=== PATIENT | female | born 1980 | race Two or more races ===

== ENCOUNTER 2018-02-14 20:41 | Inpatient (IN) | payer BC, OTHER ==
[2018-02-14 20:58] VITALS: BMI 32.3
[2018-02-14] MEDS ORDERED: Lactated Ringer's 1,000 ML IV SCH ×2 (21:15)
--- NOTE | 2018-02-14 21:37 | OBHP ---
Datetime: 02/14/2018 21:19 IP Adm Impression: Term, intrauterine ; Active labor; Intact Membranes IP Admit Plan: Admit to unit; Initiate labor protocol Admit Comment, IP Provider: This is a private patient of Dr. Susan Joseph 37 y.o. , LMP unsure, revised BOB 02/26/18, EGA 38w 2d c/o Ctx: very noticeable after offic e visit 02/13/18; stronger this morning at 1000 hours, pain scale then 6/10. Pain scale now 8/10. (+) AFM. Melisa LOF. Vaginal spotting 02/13/18 1700 hours (nadege had a cervical exam during vis it 02/13/18); with continual episodes of spotting on and off today. care: Dr. Susan Joseph; noted for 1) AMA; 2) UTI treated beginning 01/2018. P Ob: 2005, , female, 7lb 4oz, [facility] [place] Nadege treated for UTI after delivery. 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 Denies h/o STI, abnormal Pap, myomata or ovarian cysts. PMH: denies PSH: denies NKDA Meds: PNV and Vit C - eack QD Soc Hx: denies tobacco, illicit drug or EtOH use. , 2014; together x 14 years. 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 Fam Hx: Mother alive 63 y.o. - HTN, Dm, mild dyslipidemia. father alive 65 - HTN, dyslipidemia. No known fam h/o cancer. P.E.: as above. WD inNAD; uncomfortable with contractions. Awake, alert, oriented to time, person and place. Pleasant and cooerative. present Assessment: 37 y.o. P1, 38w 2d, oligohydramnios. Patient for admission for delivery. Patient with uterine contractions and some cervical change - per patient, was 1 cm in office 02/13/18 -> latent pha se of labor. Category [address] Joseph, GBS (-). D/W pain relief options. Patient is clinical ly stable. Plan: 1) Admit 2) NPO 3) Continuous EFM 4) IVFs 5) Admission labs. 6) Pain medication, upon request 7) Anticipate vaginal delivery - as per, and discussed with, Dr. Joseph Pelvic Type - PN: Adequate Extremities - PN: Normal Abdomen - PN: Normal Back - PN: Normal Breast - PN: Not Done Lungs - PN: Normal Heart - PN: Normal Thyroid - PN: Normal Neurologic - PN: Normal HEENT - PN: Normal General - PN: Normal Weight - Estimated: 7 1/2 lbs Presentation-Admit: Vertex FHR - Baseline A Provider: 150 Membranes, Provider: Intact Contraction Comments Provider: irregular Comments, ACOG Physical Exam: Abdomen: Gravid. Firm with contractions. Fundal height 37 cm All other systems reviewed and are negative. Gestation - Est Wks by US: 38w 2d EGA AdmitDate IP: 38.2 Vital Signs Provider: Reviewed IP Indication for Induction: Not Applicable IP Chief Complaint: Uterine contractions NICHD Variability Prov Fetus A: Moderate 6-25bpm NICHD Accel Fetus A IP Provider: 15X15 FHR Category Provider Fetus A: Category I NICHD Decel Fetus A IP Provider: None Dilatation, Provider: 2 Effacement, Provider: 50 Station, Provider: -3 Genitourinary Exam: Normal DTRs - PN: Normal
[2018-02-14 21:44] LABS: BASO % 0.3 % (0.0-2.0); EOS # 0.2 K/uL (0.0-0.7); EOS % 2.7 % (0.0-4.0); HEMOGLOBIN 12.4 g/dL (11.0-16.0); LYMPH # 2.5 K/uL (1.0-4.3); LYMPH % 32.2 % (20.0-40.0); MEAN CELL VOLUME 87.1 fL (81.0-99.0); MEAN CORPUSCULAR HEMOGLOBIN 30.2 pg (27.0-31.0); MEAN CORPUSCULAR HGB CONC 34.7 g/dL (33.0-37.0); MONO # 0.5 K/uL (0.0-0.8); MONO % 6.9 % (0.0-10.0); NEUT # 4.5 K/uL (1.8-7.0); NEUT % 57.9 % (50.0-75.0); NRBC % 0.1 % (0.0-2.0); RBC 4.11 Mil/uL (3.80-5.20); RED CELL DISTRIBUTION WIDTH 13.8 % (11.5-14.5); WHITE BLOOD COUNT 7.8 K/uL (4.8-10.8)
[2018-02-14 21:48] LABS: SQUAMOUS EPITHIAL < 1 /hpf (0-5); URINE BACTERIA FEW (<OCC); URINE BILIRUBIN NEGATIVE (NEGATIVE); URINE BLOOD 1+ (NEGATIVE); URINE CLARITY Clear (Clear); URINE COLOR Straw (YELLOW); URINE GLUCOSE (UA) NORMAL (Normal); URINE LEUKOCYTE ESTERASE NEG Leu/uL (Negative); URINE PROTEIN NEGATIVE (NEGATIVE); URINE UROBILINOGEN NORMAL mg/dL (0.2-1.0)
[2018-02-14 21:58] LABS: ALB/GLOB RATIO 0.9 (1.0-2.1); ALBUMIN 3.4 g/dL (3.5-5.0); ALT/SGPT 6 U/L (9-52); AST/SGOT 23 U/L (14-36); BLOOD UREA NITROGEN 7 mg/dL (7-17); CALCIUM 8.7 mg/dl (8.6-10.4); GFR AFRICAN-AMERICAN > 60; GFR NON-AFRICAN AMERICAN > 60
[2018-02-14 22:29] LABS: HEPATITIS B SURFACE AG Negative (NEGATIVE)
[2018-02-14] MEDS ORDERED: Fentanyl/Bupivacaine HCl 250 ML EPI ONE (23:40)
--- NOTE | 2018-02-15 00:15 | OBPN ---
Datetime: 02/15/2018 00:00 IP Progress Impression: Normal progression of labor IP Procedures: Sterile Vag Exam IP Progress Plan: Continue present management Membranes, Provider: Intact Contraction Comments Provider: q 4 minutes FHR - Baseline A Provider: 135 Gestation - Est Wks by US: 38w 3d IP Progress Note Comment: Patient is S/P epidural; no c/o Ctx Cervical exam -a s above Assessment: 37 y.o. P1, 38w 3d, oligohydramnios for delivery. Some cervical change noted - slow. C ategory 1 tracing. As patient is juani every 4 minutes, will continue expectant. If contractio ns space out, then will give one dose cytotec. Clinically stable. Plan: 1) Continue observation 2) cytotec 25 micrograms p.o. x 1 dose 3) Anticipate vagnial delivery - as per Dr. Jkae INGRAM Accel Fetus A IP Provider: 15X15 FHR Category Provider Fetus A: Category I NICHD Variability Prov Fetus A: Moderate 6-25bpm Dilatation, Provider: 3 Effacement, Provider: 70 Station, Provider: -3 DOMINICKD Decel Fetus A IP Provider: None Datetime: 02/14/2018 21:19 Weight - Estimated: 7 1/2 lbs Presentation-Admit: Vertex Vital Signs Provider: Reviewed
[2018-02-15] MEDS ORDERED: Oxytocin 30 UNIT 30 UNITS/500 ML BAG IV SCH (07:45)
[2018-02-15] MEDS ORDERED: Oxytocin 30 UNIT 30 UNITS/500 ML BAG IV ONE (07:50)
--- NOTE | 2018-02-15 09:05 | OBPN ---
Datetime: 02/15/2018 09:01 IP Progress Impression: Normal progression of labor IP Informed Consent Obtain: Vaginal Delivery IP Progress Plan: Continue present management Contraction Comments Provider: q 5 FHR - Baseline A Provider: 125 Gestation - Est Wks by US: 38.3 Presentation-Admit: Vertex IP Progress Note Comment: pt seen and examined with pain improved iwth epidural VSS VE: 4/80/-2 ctx intact A/P @ 38.3 wks GA IOL for oligohydramnios -s/p cytotoce -s/p epdiural -pitocin augmentatin -cont toco adn efm Vital Signs Provider: Reviewed; Within Normal Limits FHR Category Provider Fetus A: Category I NICHD Variability Prov Fetus A: Moderate 6-25bpm Dilatation, Provider: 4 Effacement, Provider: 80 Station, Provider: -2
--- NOTE | 2018-02-15 12:40 | OBPN ---
Datetime: 02/15/2018 12:15 IP Progress Impression: Normal progression of labor IP Procedures: Artificial ROM IP Progress Plan: Continue present management Membranes, Provider: Ruptured Amniotic Fluid Color, Provider: Clear FHR - Baseline A Provider: 125 Gestation - Est Wks by US: 38.3 Presentation-Admit: Vertex IP Progress Note Comment: pt seen and examined reports pain controlled VSS VE: 80/-2 AROM clear A/P @ 38.3 wks GA in labor -cont current mangagment -pitoicn as per protocol Vital Signs Provider: Reviewed; Within Normal Limits FHR Category Provider Fetus A: Category I NICHD Variability Prov Fetus A: Moderate 6-25bpm Dilatation, Provider: 4 Effacement, Provider: 80 Station, Provider: -2
[2018-02-15] MEDS ORDERED: Lidocaine 2% MPF (5 ml) Inj ONE (16:01)
--- NOTE | 2018-02-15 17:02 | OBPN ---
Datetime: 02/15/2018 17:00 IP Progress Impression: Normal progression of labor IP Informed Consent Obtain: Vaginal Delivery IP Progress Plan: Continue present management; Anticipate Vaginal Delivery Membranes, Provider: Ruptured FHR - Baseline A Provider: 135 Gestation - Est Wks by US: 38.3 Presentation-Admit: Vertex IP Progress Note Comment: pt seen and examined c/o pressure s/p epidural VSS VE10cm A/P @ 38.3 wks GA fully dilated -start pushing -antiicpate -cont current manamgent Vital Signs Provider: Reviewed; Within Normal Limits NICHD Variability Prov Fetus A: Moderate 6-25bpm Dilatation, Provider: 10 Effacement, Provider: 100 Station, Provider: 0 NICHD Decel Fetus A IP Provider: None
[2018-02-15] MEDS ORDERED: Benzocaine/Menthol 20%-0.5% Topical Spray (60 ml) TOP PRN (19:53)
[2018-02-15] MEDS ORDERED: Oxycodone/Acetaminophen 5/325 mg Tab PO PRN (19:53)
[2018-02-15] MEDS ORDERED: cefOXitin IV 2 gm in Saline 2 GM in Sodium Chloride 0.9% 50 ML IV STA (20:02)
[2018-02-15] MEDS ORDERED: Oxycodone/Acetaminophen 5/325 mg Tab ONE (20:06)
--- NOTE | 2018-02-15 20:08 | OBDS ---
DELIVERY PERSONNEL Delivery Doctor: Margarita Joseph MD Want Ad Receiver: Zofia Zaragoza RN Anesthesiologist: Dr. Bravo MATERNAL INFORMATION Delivery Anesthesia: Epidural Medications in Delivery: pitocin 20 units and methergin 0.2 IM Estimated Blood Loss (ml): 400 Placenta Cultured: No Maternal Complications: None Provider Comments: Pt was fully dilated and pushing, verbal consent given for right mediolateral epi sitomy given, loose nuchal cord reduced x 1. atrumatic, spontaneous delivery of head, atruamtic, spon tanoeu deliveyr of anteiro follweod by possible shoulder followed by delivery of the body. both oral and nasal passages of the baby were bulb suctioned. umbilical cord was clamped adn cut. baby handed o t mother on abdomen with rn assistance. Fundus firm, lower uterien segment boggy. Bimanual massage, s traight catheter 200 cc clear yellow urine obatined. Methergine IM x 1 given. Bimanal massage given. Funds adn lower uteirne segment firm. second degree perineal and right mediolateral episitomy reapire d iwth local anesethestic lidocian adn 2-0 and 3-0 chormic. Good hemostaiss, no complicatins Live male agpars 9,9 weight of 7lb 11 ounces no complications LABOR SUMMARY EDC: 02/26/2018 00:00 No. Babies in Womb: 1 Attempted: No Labor Anesthesia: Epidural LABOR INFORMATION Onset of Labor: 02/15/2018 11:16 Complete Dilatation: 02/15/2018 16:17 Cervical Ripening Agents: Cytotec @ (Annotations: 25 mcg po) Oxytocin: Augmentation Group B Beta Strep: Negative Steroids Given: None Reason Steroids Not Administered: Not Applicable MEMBRANES Membranes Rupture Method: Artificial Rupture of Membranes: 02/15/2018 11:16 Length of Rupture (hrs): 8.02 Amniotic Fluid Color: Bloody Amniotic Fluid Amount: Moderate Amniotic Fluid Odor: None STAGES OF LABOR Stage 1 hrs: 5 Stage 1 min: 1 Stage 2 hrs: 3 Stage 2 min: 0 Stage 3 hrs: 0 Stage 3 min: 3 Total Time in Labor hrs: 8 Total Time in Labor min: 4 VAGINAL DELIVERY Episiotomy: Right Mediolateral Laceration Extension: Second Degree Laceration Type: Perineal Laceration Repair: Yes Laceration Repair Note: right mediolateral episitomy, second degree perineal laceration repaired Initial Vag Sponge Count: 29 Final Vag Sponge Count: 20 BABY A INFORMATION Delivery Date/Time: 02/15/2018 19:17 Method of Delivery: Vaginal Born in Route : No : N/A Forceps: N/A Vacuum Extraction: N/A Shoulder Dystocia : No SHOULDER DYSTOCIA BABY A Infant Delivery Date/Time: 02/15/2018 19:17 PRESENTATION/POSITION BABY A Presentation: Cephalic Cephalic Presentation: Vertex Vertex Position: Left Occipital Anterior Breech Presentation: N/A PLACENTA INFORMATION BABY A Placenta Delivery Time : 02/15/2018 19:20 Placenta Method of Delivery: Expressed Placenta Status: Delivered SCORES BABY A Heart Rate 1 min: >100 bpm Resp Effort 1 min: Good Cry Reflex Irritability 1 min: Cough or Sneeze or Pulls Away Muscle Tone 1 min: Active Motion Color 1 min: Body [place], Extremities Blue SCORE 1 MIN: 9 Heart Rate 5 min: >100 bpm Resp Effort 5 min: Good Cry Reflex Irritability 5 min: Cough or Sneeze or Pulls Away Muscle Tone 5 min: Active Motion Color 5 min: Body [place], Extremities Blue SCORE 5 MIN: 9 INFORMATION BABY A Gestational Age at Delivery: 38.2 Gestational Status: Term Infant Outcome : Liveborn Condition : Stable Infant Sex: Male IDENTIFICATION/MEDS BABY A ID Band Number: [id number] ID Band Location: Left Leg; Left Arm Sensor Applied: Yes Sensor Number: [id number] Sensor Location : Cord Clamp Vitamin K Given : Aquamephyton 1 mg IM Erythromycin Given: Given Both Eyes WEIGHT/LENGTH BABY A Infant Birthweight (gms): 3480 Infant Weight (lb): 7 Infant Weight (oz): 11 Infant Length Inches: 19.50 Infant Length cms: 49.5 CORD INFORMATION BABY A No. 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 Rosa Transferred To: Remains with Mother
[2018-02-15] MEDS ORDERED: cefOXitin IV 2 gm in Saline 2 GM/50 ML BAG IVPB ONE (20:11)
--- NOTE | 2018-02-16 00:34 | OBPPN ---
Datetime: 02/16/2018 00:29 PP Pain Prov: Within normal limits PP Nausea Prov: Denies PP Flatus Prov: Yes PP BM Prov: No PP Breasts Prov: Normal PP Heart Prov: Normal PP Lungs Prov: Normal PP Abdomen/Uterus Prov: Normal PP Lochia Prov: Normal PP Vulva/Perineum Prov: Normal PP CVA Tenderness Prov: Normal PP Extremities Prov: Normal PP C/S Incision Prov: Not Applicable PP Progress Prov: Normal PP Impression Prov: Normal progression PP Plan Prov: Continue present management PP Progress Note Prov: pt seen and examiend and rperots pain over episitomy site and cramping, contr olled with medications pt dnies any fever, chills, nause, ovmiting, cp, sob. pt is breast and bottel feeding, dnie sany h eavy bleeding, lightheadnes, dizzyness. pt is voidng, passing flatus. VSS PE see above A/p s/p PPD #1 am cbc pain manamgnet enocuarbe breast feedign adn ambauiton Vital Signs Provider PP: Reviewed; Within Normal Limits
[2018-02-16] MEDS: Oxycodone/Acetaminophen 5/325 mg Tab PO PRN ×2 (05:59→17:32)
[2018-02-16 08:23] LABS: BASO # 0.1 K/uL (0.0-0.2); BASO % 0.7 % (0.0-2.0); EOS # 0.2 K/uL (0.0-0.7); EOS % 1.1 % (0.0-4.0); LYMPH # 2.2 K/uL (1.0-4.3); LYMPH % 15.5 % (20.0-40.0); MEAN CELL VOLUME 87.6 fL (81.0-99.0); MEAN CORPUSCULAR HEMOGLOBIN 29.1 pg (27.0-31.0); MEAN CORPUSCULAR HGB CONC 33.2 g/dL (33.0-37.0); MEAN PLATELET VOLUME 7.9 fL (7.2-11.7); MONO # 0.9 K/uL (0.0-0.8); MONO % 5.9 % (0.0-10.0); NEUT # 11.1 K/uL (1.8-7.0); NEUT % 76.8 % (50.0-75.0); RBC 3.26 Mil/uL (3.80-5.20); RED CELL DISTRIBUTION WIDTH 13.4 % (11.5-14.5)
[2018-02-16 08:32] LABS: WHITE BLOOD COUNT 14.4 K/uL (4.8-10.8)
[2018-02-16 08:33] LABS: HEMOGLOBIN 9.5 g/dL (11.0-16.0)
[2018-02-16] MEDS: Multiple Vitamins Tab PO SCH (09:48)
[2018-02-16 16:08] VITALS: O2SAT 98
--- NOTE | 2018-02-17 00:14 | OBDCSUM ---
Datetime: 02/17/2018 00:12 Discharged to, Provider: Home Follow up at, Provider: Dr Joseph Disch Instr Activity: Normal activity Disch Instr Diet: Regular Discharge Instructions, Provider: Routine instructions given Discharge Diagnosis, Provider: Term Delivered Discharge Time: 02/17/2018 09:00 Follow up in weeks, Provider: 6 weeks Disch Referrals: None Contraception discussed, Prov: Yes Disch Activity Restrictions: No sexual activity; Nothing in vagina - [place], tampons, douche Discharge Comment, Provider: stephanie this am Contraception after Delivery: Not Planning to Use
[2018-02-17 08:16] LABS: BASO # 0.1 K/uL (0.0-0.2); BASO % 0.7 % (0.0-2.0); EOS # 0.2 K/uL (0.0-0.7); EOS % 1.5 % (0.0-4.0); HEMOGLOBIN 10.3 g/dL (11.0-16.0); LYMPH # 3.3 K/uL (1.0-4.3); LYMPH % 22.9 % (20.0-40.0); MEAN CELL VOLUME 87.9 fL (81.0-99.0); MEAN CORPUSCULAR HEMOGLOBIN 30.4 pg (27.0-31.0); MEAN CORPUSCULAR HGB CONC 34.5 g/dL (33.0-37.0); MEAN PLATELET VOLUME 8.1 fL (7.2-11.7); MONO # 0.7 K/uL (0.0-0.8); MONO % 4.6 % (0.0-10.0); NEUT # 10.2 K/uL (1.8-7.0); NEUT % 70.3 % (50.0-75.0); NRBC % 0.1 % (0.0-2.0); RBC 3.38 Mil/uL (3.80-5.20); RED CELL DISTRIBUTION WIDTH 13.8 % (11.5-14.5); WHITE BLOOD COUNT 14.5 K/uL (4.8-10.8)
[2018-02-17 08:31] VITALS: PULSE 100; RESP 18; TEMP 97.2
[2018-02-17] MEDS: Multiple Vitamins Tab PO SCH (09:22)
[2018-02-17 16:37] VITALS: BP 123/76
== END 2018-02-17 11:55 | disposition home or self-care (01) | DRG 775 ==
LOC: C.EROB 20:41 → C.4D 21:13 → C.4M 02-15 23:30
PROVIDERS: ADMIT Obstetrics & Gynecology; ATTEND Obstetrics & Gynecology
PROC: 10E0XZZ Delivery of Products of Conception, External Approach (ICD-10-PCS; principal; 2018-02-15)
PROC: 0KQM0ZZ Repair Perineum Muscle, Open Approach (ICD-10-PCS; 2018-02-15)
PROC: 3E0P7VZ Introduction of Hormone into Female Reproductive, Via Natural or Artificial Opening (ICD-10-PCS; 2018-02-15)
PROC: 10907ZC Drainage of Amniotic Fluid, Therapeutic from Products of Conception, Via Natural or Artificial Opening (ICD-10-PCS; 2018-02-15)
PROC: 0W8NXZZ Division of Female Perineum, External Approach (ICD-10-PCS; 2018-02-15)
DX: O69.81X0 Labor and delivery complicated by cord around neck, without compression, not applicable or unspecified (principal); O70.1 Second degree perineal laceration during delivery; Z3A.38 38 weeks gestation of pregnancy; Z37.0 Single live birth